=== PATIENT | female | born 1960 | race Caucasian/White ===

== ENCOUNTER → 2016-07-25 | Outpatient (CLI) | payer BC ==
--- NOTE | 2016-07-26 09:33 | REP ---
PET/CT: History: Initial staging pulmonary nodule. Ground-glass opacity right upper lobe. History of lymphoma. Comparisons: Comparison CT study [facility] June 29, 2016. TECHNIQUE: 62 minutes following the intravenous injection of a 7.8 mCi dose of F-18 FDG, three-dimensional PET scintigraphy is acquired from the skull base to the proximal thighs. Triplanar noncontrast CT scanning is acquired through the same anatomic range for attenuation correction, and image registration with scan parameters optimized to minimize radiation exposure to the patient. PET scintigraphy and CT datasets were fused and displayed on a workstation with multiplanar and projection display capability. PET/CT Findings: The head and neck soft tissues are unremarkable. There is no discernible FDG accumulation in the area of ground-glass opacity seen in the posterior segment of the right upper lobe on today's PET CT study. Sagittal reformation CT images suggest linear fibrosis morphology. The right middle lobe nodule is again seen on today's CT but there is no discernible FDG accumulation within it on scintigraphy. This is a small nodule. There is no abnormal hypermetabolic uptake within the chest. In the abdomen and pelvis, there is normal hepatic, splenic, gastrointestinal, and genitourinary FDG accumulation. No abnormal hypermetabolic uptake is seen within the chest or abdomen. No abnormal adrenal uptake is seen. Incidental findings include a small hiatal hernia and left colonic diverticulosis. Impression: No abnormal hypermetabolic uptake. No discernible uptake in either of the right lung pulmonary opacities. Follow-up chest CT recommended in 4-6 months. Signed by Dwaine Haas MD 07/26/2016 12:06 P
== END ==
LOC: M RAD 13:32
PROVIDERS: ATTEND Internal Medicine
DX: R91.1 Solitary pulmonary nodule (principal); Z85.72 Personal history of non-Hodgkin lymphomas; K44.9 Diaphragmatic hernia without obstruction or gangrene; K57.30 Diverticulosis of large intestine without perforation or abscess without bleeding
CPT/HCPCS: 78815; A9552

== ENCOUNTER → 2016-08-17 | Outpatient (REF) | payer BC | LOC: M LAB REF 12:06 | PROVIDERS: ATTEND Nurse Practitioner Family | DX: R50.9 Fever, unspecified (principal) ==

== ENCOUNTER → 2016-09-06 | Outpatient (REF) | payer BC ==
[2016-09-06 17:49] LABS: URIC ACID 6.9 MG/DL (2.6-6.0)
== END ==
LOC: M LAB REF 16:43
PROVIDERS: ATTEND Internal Medicine
DX: M25.50 Pain in unspecified joint (principal)

== ENCOUNTER → 2016-11-02 | Outpatient (REF) | payer BC | LOC: M LAB REF 16:26 | PROVIDERS: ATTEND Internal Medicine | DX: M10.062 Idiopathic gout, left knee (principal) ==

== ENCOUNTER → 2016-11-12 | Outpatient (REF) | payer BC ==
[2016-11-12 20:02] LABS: URIC ACID 6.8 MG/DL (2.6-6.0)
== END ==
LOC: M LAB REF 16:47
PROVIDERS: ATTEND Internal Medicine
DX: M10.062 Idiopathic gout, left knee (principal)

== ENCOUNTER → 2017-07-18 | Outpatient (CLI) | payer BC | LOC: M RAD 09:04 | DX: Z12.31 Encounter for screening mammogram for malignant neoplasm of breast (principal) | CPT/HCPCS: 77067 ==

== ENCOUNTER → 2017-08-20 | Outpatient (REF) | payer BC ==
[2017-08-20 13:31] LABS: INFLUENZA A AMPLIFICATION POSITIVE (NEGATIVE); INFLUENZA B AMPLIFICATION NEGATIVE (NEGATIVE)
== END ==
LOC: M LAB REF 12:24
DX: R05 Cough (principal)
CPT/HCPCS: 87502

== ENCOUNTER → 2018-09-23 | Outpatient (CLI) | payer BC ==
--- NOTE | 2018-09-23 09:58 | REPMRS ---
Patient History The patient states she has not had a clinical breast exam in over a year. Family history of breast cancer under age 50 in maternal grandmother, breast cancer under age 50 in maternal aunt, unknown cancer at age 63 in brother. Took hormonal contraceptives for 20 years. Took estrogen for 2 years. Took progesterone for 2 years. Digital Mammo Screening Bilat: September 23, 2018 - Exam #: [id number] Bilateral CC and MLO view(s) were taken. Technologist: Michaela Laguna, Technologist Prior study comparison: July 18, 2017, bilateral digital mammo screening bilat performed at [facility]. May 28, 2016, bilateral digital mammo screening bilat performed at [facility]. FINDINGS: The breast tissue is almost entirely fat. There has been no change in the appearance of the mammogram from the prior studies. There is no interval development of dominant mass, areas of architectural distortion, or clustered microcalcification typical of malignancy. Scattered lymph nodes are seen in the axillae. There are scattered, small, benign calcifications of doubtful clinical significance. 3-D tomosynthesis shows no additional findings. No significant changes when compared with prior studies. Assessment: BI-RADS/ACR category 2 mammogram. Benign Findings. Recommendation Routine screening mammogram in 1 year. A. Negative x-ray reports should not delay biopsy if a dominant or clinically suspicious mass is present. B. Four to eight percent of cancers are not identified by mammography. C. Adenosis and dense breast may obscure an underlying neoplasm.(for women over age 40). This mammogram was interpreted with the aid of an FDA-approved computer-aided dectection system. Electronically Signed By: Vicente Rodarte MD 09/23/18 [id number]
== END ==
LOC: M RAD 07:28
PROVIDERS: ATTEND Nurse Practitioner Family
DX: Z12.31 Encounter for screening mammogram for malignant neoplasm of breast (principal); Z80.3 Family history of malignant neoplasm of breast

== ENCOUNTER → 2018-12-12 | Outpatient (REF) | payer BC ==
[2018-12-12 19:14] LABS: PERCENT SATURATION 23.4 % (13.2-45.0)
== END ==
LOC: M LAB REF 17:05
PROVIDERS: ATTEND Internal Medicine
DX: D64.9 Anemia, unspecified (principal)

== ENCOUNTER → 2019-05-12 | Outpatient (REF) | payer BC ==
[2019-05-12 18:02] LABS: PERCENT SATURATION 21.8 % (13.2-45.0)
== END ==
LOC: M LAB REF 16:49
PROVIDERS: ATTEND Internal Medicine
DX: D64.9 Anemia, unspecified (principal)

== ENCOUNTER 2019-08-12 09:15 | Day surgery (SDC) | payer BC ==
[~2019-08-12] VITALS: Ht 160 cm; Wt 89.4 kg
[~2019-08-12 09:15] MED LIST: ASPI81TA26 PO; BREO1INH INH; CETI10CH PO; METF500T13 PO; NS 1,000 ML IV ONE; OLME40TA PO; PRIL20TA2 PO; VITA500T PO
[2019-08-12] MEDS ORDERED: LIDOCAINE 2% INJ 100 MG/5 ML SDV (FOR ANES.) As Ordered ONE (10:46)
[2019-08-12] MEDS ORDERED: propofoL 200 MG/20 ML VIAL As Ordered ONE (10:46)
--- NOTE | 2019-08-12 10:48 | ROOR ---
Patient Name: Radha Smith Procedure Date: 08/12/2019 10:27 AM Date of : 1960 Age: 59 Room: [facility] Gender: Female Note Status: Finalized Procedure: Upper Endoscopy + Biopsies Indications: Heartburn, Exclusion of Hauser's esophagus Providers: Roberto Blair MD Referring MD: Rdaha Wayne DO Requesting Provider: Medicines: Monitored Anesthesia Care Complications: No immediate complications. Procedure: Pre-Anesthesia Assessment: - The heart rate, respiratory rate, oxygen saturations, blood pressure, adequacy of pulmonary ventilation, and response to care were monitored throughout the procedure. The Endoscope was introduced through the mouth, and advanced to the second part of duodenum. The upper GI endoscopy was accomplished without difficulty. The patient tolerated the procedure well. Findings: The Z-line was variable and was found 35 cm from the incisors. Multiple biopsies were obtained with cold forceps for evaluation to rule out Hauser's Esophagus randomly at the gastroesophageal junction. A medium-sized hiatal hernia was present. No other significant abnormalities were identified in a careful examination of the stomach. The exam of the duodenum was otherwise normal. Impression: - Z-line variable, 35 cm from the incisors. - Medium-sized hiatal hernia. - Multiple biopsies were obtained at the gastroesophageal junction. - The examination was otherwise normal. Recommendation: - Patient has a contact number available for emergencies. The signs and symptoms of potential delayed complications were discussed with the patient. Return to normal activities tomorrow. Written discharge instructions were provided to the patient. - High fiber diet. - Discharge patient to home. - Follow an antireflux regimen. - Continue present medications. - Await pathology results. - Telephone GI clinic for pathology results in 1 week. - Return to referring physician. - The findings and recommendations were discussed with the patient's family. Roberto Blair MD Roberto Blair MD 08/12/2019 10:47:48 AM Electronically signed by Roberto Blair MD Number of Addenda: 0 Note Initiated On: 08/12/2019 10:27 AM Estimated Blood Loss: Estimated blood loss: none.
--- NOTE | 2019-08-12 11:05 | ROOR ---
Patient Name: Radha Smith Procedure Date: 08/12/2019 10:28 AM Date of : 1960 Age: 59 Room: [facility] Gender: Female Note Status: Finalized Procedure: Total Colonoscopy to Cecum Indications: Screening for colorectal malignant neoplasm Providers: Roberto Blair MD Referring MD: Radha Wayne DO Requesting Provider: Medicines: Monitored Anesthesia Care Complications: No immediate complications. Procedure: Pre-Anesthesia Assessment: - The heart rate, respiratory rate, oxygen saturations, blood pressure, adequacy of pulmonary ventilation, and response to care were monitored throughout the procedure. The Colonoscope was introduced through the anus and advanced to the cecum, identified by appendiceal orifice and ileocecal valve. The colonoscopy was performed without difficulty. The patient tolerated the procedure well. The quality of the bowel preparation was excellent. Findings: The perianal and digital rectal examinations were normal. Non-bleeding internal hemorrhoids were found during retroflexion. The hemorrhoids were small and Grade I (internal hemorrhoids that do not prolapse). Multiple small and large-mouthed diverticula were found in the recto-sigmoid colon, sigmoid colon and descending colon. The exam was otherwise without abnormality on direct and retroflexion views. Impression: - Non-bleeding internal hemorrhoids. - Diverticulosis in the recto-sigmoid colon, in the sigmoid colon and in the descending colon. - The examination was otherwise normal on direct and retroflexion views. - No specimens collected. - The exam was otherwise normal to the cecum. Recommendation: - Patient has a contact number available for emergencies. The signs and symptoms of potential delayed complications were discussed with the patient. Return to normal activities tomorrow. Written discharge instructions were provided to the patient. - High fiber diet. - Discharge patient to home. - Continue present medications. - Repeat colonoscopy in 10 years for screening purposes. - Return to referring physician. - The findings and recommendations were discussed with the patient's family. Roberto Blair MD Roberto Blair MD 08/12/2019 11:05:24 AM Electronically signed by Roberto Blair MD Number of Addenda: 0 Note Initiated On: 08/12/2019 10:28 AM Estimated Blood Loss: Estimated blood loss: none.
[2019-08-12 11:25] VITALS: BP 125/78
== END 2019-08-12 11:44 | disposition home or self-care (01) ==
LOC: M OPP 09:15
PROVIDERS: ATTEND Internal Medicine Gastroenterology
DX: Z12.11 Encounter for screening for malignant neoplasm of colon (principal); K64.0 First degree hemorrhoids; K57.30 Diverticulosis of large intestine without perforation or abscess without bleeding; K22.8 Other specified diseases of esophagus; K44.9 Diaphragmatic hernia without obstruction or gangrene; R12 Heartburn; K21.9 Gastro-esophageal reflux disease without esophagitis; Z79.82 Long term (current) use of aspirin; Z79.84 Long term (current) use of oral hypoglycemic drugs; Z79.899 Other long term (current) drug therapy; Z88.0 Allergy status to penicillin; Z88.8 Allergy status to other drugs, medicaments and biological substances; Z87.891 Personal history of nicotine dependence

== ENCOUNTER → 2020-03-19 | Outpatient (REF) | payer BC ==
[~2020-03-19] MED LIST changes: -NS 1,000 ML IV ONE; +VITA-243 PO; -VITA500T PO
== END ==
LOC: M WUC 17:22
PROVIDERS: ATTEND Nurse Practitioner Family
DX: N39.0 Urinary tract infection, site not specified (principal)

== ENCOUNTER → 2020-03-28 | Outpatient (CLI) | payer BC ==
--- NOTE | 2020-03-28 17:38 | REPMRS ---
Patient History The patient states she has not had a clinical breast exam in over a year. Family history of breast cancer under age 50 in maternal grandmother, breast cancer under age 50 in maternal aunt, unknown cancer at age 63 in brother. Took hormonal contraceptives for 20 years. Took estrogen for 2 years. Took progesterone for 2 years. Digital Woman Screen Mammo: March 28, 2020 - Exam #: [id number] Bilateral CC and MLO view(s) were taken. Technologist: Melody Yadav, Technologist Prior study comparison: September 23, 2018, bilateral digital mammo screening bilat, performed at [facility]. July 18, 2017, bilateral digital mammo screening bilat, performed at [facility]. May 28, 2016, bilateral digital mammo screening bilat, performed at [facility]. FINDINGS: The breast tissue is almost entirely fat. The Volpara volumetric breast density category is: A. There has been no change in the appearance of the mammogram from the prior studies. There is no interval development of dominant mass, architectural distortion, or grouped microcalcification typical of malignancy. 3-D tomosynthesis shows no additional findings. Assessment: BI-RADS/ACR category 1 mammogram. Negative Mammogram. Recommendation Routine screening mammogram of both breasts in 1 year (for women over age 40). This patient's Lifetime Breast Cancer RIsk is estimated at 9.5 %. This mammogram was interpreted with the aid of an FDA-approved computer-aided dectection system. Electronically Signed By: Zafar Haas MD 03/28/20 [id number]
== END ==
LOC: M WHC 12:50
PROVIDERS: ATTEND Internal Medicine
DX: Z12.31 Encounter for screening mammogram for malignant neoplasm of breast (principal); Z80.8 Family history of malignant neoplasm of other organs or systems; Z80.3 Family history of malignant neoplasm of breast; Z92.0 Personal history of contraception; Z92.23 Personal history of estrogen therapy; Z92.29 Personal history of other drug therapy

== ENCOUNTER → 2020-05-27 | Outpatient (CLI) | payer BC ==
[~2020-05-27] MED LIST changes: +GASTROGRAFIN SOLUTION 30ML (Q9963) As Ordered ONE; +ISOVUE-370 76% 100ML VIAL As Ordered ONE
--- NOTE | 2020-05-27 19:12 | REP ---
INDICATION: PELVIC AND PERINEAL PAIN. COMPARISON: None TECHNIQUE: 100 cc Isovue 370 FINDINGS: The precontrast enhanced portion examination shows a patent splenic densities to be within normal limits. There are no cholelithiasis. There is a 5 mm sized nonobstructing nephrolith in the inferior pole of the right kidney. There are no proximal ureterolith. The contrast-enhanced portion examination shows the liver, gallbladder, spleen, pancreas, adrenal glands, and right kidney to be unremarkable. Seen in the interpolar region of the left kidney there is a round 2.3 cm sized smoothly marginated focal area of low density which has water density Hounsfield unit readings without septations or enhancement consistent with a simple cyst. There is a smaller structure of similar characteristics seen in the inferior pole of the left kidney. The abdominal aorta and para-regions are within normal limits. There is no free fluid or free air. There is descending colon and sigmoid colon diverticulosis. There is no mass or adenopathy. There is no free fluid or free air. There is a small hiatal hernia. Bone window technique throughout the examination shows the osseous structures to be within normal limits for the patient's age. The lung bases are clear. IMPRESSION: 1. Simple Bosniak class 1 left renal cysts as described above. 2. Colonic diverticulosis without diverticulitis. 3. 5 mm sized nonobstructing right nephrolith. 4. Other findings as described above. <Electronically signed by Geremias Mccord > 05/27/20 [id number]
== END ==
LOC: M RAD 16:19
PROVIDERS: ATTEND Internal Medicine
DX: R10.2 Pelvic and perineal pain (principal); N20.0 Calculus of kidney; K57.30 Diverticulosis of large intestine without perforation or abscess without bleeding; K44.9 Diaphragmatic hernia without obstruction or gangrene; N28.1 Cyst of kidney, acquired
CPT/HCPCS: 74178; Q9963; Q9967

== ENCOUNTER → 2021-08-17 | Outpatient (CLI) | payer BC ==
[~2021-08-17] MED LIST changes: -GASTROGRAFIN SOLUTION 30ML (Q9963) As Ordered ONE; -ISOVUE-370 76% 100ML VIAL As Ordered ONE
== END ==
LOC: M RAD 10:35
PROVIDERS: ATTEND Internal Medicine
DX: E04.2 Nontoxic multinodular goiter (principal)

== ENCOUNTER → 2021-08-20 | Outpatient (REF) | payer BC | LOC: M LAB REF 17:25 | PROVIDERS: ATTEND Physician Assistant | DX: R30.0 Dysuria (principal) ==

== ENCOUNTER → 2021-08-20 | Outpatient (CLI) | payer BC ==
[2021-08-20 12:25] LABS: BASO % 0.3 % (0.0-1.0); EOS % 0.3 % (0.0-3.0); HEMATOCRIT 33.8 % (36.0-47.0); HEMOGLOBIN 11.3 g/dl (12.0-15.5); LYMPH % 8.1 % (24.0-44.0); MEAN CORPUSCULAR HEMOGLOBIN 29.7 pg (27.0-33.0); MEAN CORPUSCULAR HGB CONC 33.4 g/dl (32.0-36.5); MEAN CORPUSCULAR VOLUME 88.7 fl (80.0-96.0); MONO # 0.8 10^3/uL (0.0-0.8); NEUTROPHILS # 9.9 10^3/uL (1.5-8.5); NEUTROPHILS % 83.8 % (36.0-66.0); PLATELET COUNT, AUTOMATED 165 10^3/uL (150-450); RED BLOOD COUNT 3.81 10^6/uL (4.00-5.40)
[2021-08-20 12:42] LABS: ALBUMIN 3.6 GM/DL (3.2-5.2); BILIRUBIN,TOTAL 0.5 MG/DL (0.2-1.0); CALCIUM LEVEL 8.6 MG/DL (8.5-10.1); CREATININE FOR GFR 1.38 MG/DL (0.55-1.30); GLOMERULAR FILTRATION RATE 41.7 (>51); POTASSIUM SERUM 4.7 MEQ/L (3.5-5.1); TOTAL PROTEIN 7.4 GM/DL (6.4-8.2)
[2021-08-21 06:33] LABS: WHITE BLOOD COUNT 11.8 10^3/uL (4.0-10.0)
== END ==
LOC: M LAB 11:51
PROVIDERS: ATTEND Physician Assistant
DX: R30.0 Dysuria (principal)

== ENCOUNTER → 2021-08-29 | Outpatient (REF) | payer BC | LOC: M WUC 15:44 | PROVIDERS: ATTEND Physician Assistant | DX: R30.0 Dysuria (principal) ==

== ENCOUNTER → 2022-09-13 | Outpatient (REF) | payer BC ==
[2022-09-13 16:41] LABS: FERRITIN 71.4 NG/ML (7.3-270.7); PERCENT SATURATION 21.8 % (13.2-45.0)
== END ==
LOC: M LAB REF 16:07
PROVIDERS: ATTEND Internal Medicine
DX: D64.9 Anemia, unspecified (principal)

== ENCOUNTER → 2022-09-27 | Outpatient (CLI) | payer BC | LOC: M WHC 13:54 | PROVIDERS: ATTEND Internal Medicine | DX: Z12.31 Encounter for screening mammogram for malignant neoplasm of breast (principal) ==

== ENCOUNTER → 2022-10-29 | Outpatient (REF) | payer BC | LOC: M LAB REF 18:20 | PROVIDERS: ATTEND Student in an Organized Health Care Education/Training Program | DX: R30.0 Dysuria (principal) ==

== ENCOUNTER → 2022-11-05 | Outpatient (REF) | payer BC ==
[~2022-11-05] MED LIST changes: +ALL10TAB PO; +FLON1SPR; +LEVA45AE INH; +MULT-90 PO
== END ==
LOC: M LAB REF 16:31
PROVIDERS: ATTEND Nurse Practitioner Family
DX: R30.0 Dysuria (principal); N39.0 Urinary tract infection, site not specified

== ENCOUNTER 2022-11-19 10:30 | Day surgery (SDC) | payer BC ==
[~2022-11-19] VITALS: Ht 160 cm; Wt 97.0 kg
[~2022-11-19 10:30] MED LIST changes: +NS 1,000 ML IV ONE
[2022-11-19] MEDS ORDERED: LIDOCAINE 2% 100MG/5ML SDV (FOR ANES.) As Ordered ONE (11:23)
[2022-11-19] MEDS ORDERED: propofoL 200 MG/20 ML VIAL As Ordered ONE (11:23)
[2022-11-19] MEDS ORDERED: fentaNYL 100 MCG/2 ML INJECTION As Ordered ONE (11:31)
[2022-11-19 12:10] VITALS: BP 124/59
== END 2022-11-19 12:20 | disposition home or self-care (01) ==
LOC: M OPP 10:30
PROVIDERS: ATTEND Internal Medicine Gastroenterology
DX: K31.A19 Gastric intestinal metaplasia without dysplasia, unspecified site (principal); K22.89 Other specified disease of esophagus; K31.7 Polyp of stomach and duodenum; Z87.891 Personal history of nicotine dependence; Z79.82 Long term (current) use of aspirin; Z79.84 Long term (current) use of oral hypoglycemic drugs; Z79.899 Other long term (current) drug therapy; Z88.0 Allergy status to penicillin; Z88.1 Allergy status to other antibiotic agents; Z88.8 Allergy status to other drugs, medicaments and biological substances
CPT/HCPCS: 43239; 88305; J3010

== ENCOUNTER → 2023-03-19 | Outpatient (REF) | payer BC ==
[~2023-03-19] MED LIST changes: -NS 1,000 ML IV ONE
[2023-03-19 18:16] LABS: APPEARANCE, URINE CLOUDY (CLEAR); BACTERIA, URINE AUTO 2+ (NEGATIVE); BILIRUBIN, URINE AUTO NEGATIVE (NEGATIVE); BLOOD, URINE BLOOD NEGATIVE (NEGATIVE); COLOR, URINE YELLOW (YELLOW); GLUCOSE, URINE (UA) AUTO NEGATIVE (NEGATIVE); KETONE, URINE AUTO NEGATIVE (NEGATIVE); LEUKOCYTE ESTERASE, URINE AUTO 3+ (NEGATIVE); NITRITE, URINE AUTO POSITIVE (NEGATIVE); PROTEIN, URINE AUTO 1+ mg/dL (NEGATIVE); RBC, URINE AUTO 0 /HPF (0-3); SPECIFIC GRAVITY URINE AUTO 1.017 (1.002-1.035); SQUAMOUS EPITHELIAL CELL UR AU 5 /HPF (0-6); UROBILINOGEN, URINE AUTO 0.2 mg/dL (0.0-2.0); WBC, URINE AUTO TNTC /HPF (0-3)
== END ==
LOC: M LAB REF 16:42
PROVIDERS: ATTEND Internal Medicine
DX: N39.0 Urinary tract infection, site not specified (principal)

== ENCOUNTER → 2023-04-16 | Outpatient (CLI) | payer BC ==
[~2023-04-16] MED LIST changes: +ISOVUE-370 76% 100ML VIAL ONE
== END ==
LOC: M PLAIMG 09:40
PROVIDERS: ATTEND Internal Medicine
DX: J43.2 Centrilobular emphysema (principal); N28.1 Cyst of kidney, acquired; K76.0 Fatty (change of) liver, not elsewhere classified
CPT/HCPCS: 71260; Q9967

== ENCOUNTER → 2024-09-28 | Outpatient (CLI) | payer BC ==
[~2024-09-28] MED LIST changes: -ISOVUE-370 76% 100ML VIAL ONE
[2024-09-29 13:21] LABS: PERCENT SATURATION 20.3 % (13.2-45.0)
[2024-09-29 13:24] LABS: FERRITIN 51.9 NG/ML (7.3-270.7)
== END ==
LOC: M WUC 15:20
PROVIDERS: ATTEND Internal Medicine
DX: D64.9 Anemia, unspecified (principal); M25.552 Pain in left hip; M25.562 Pain in left knee; M79.89 Other specified soft tissue disorders; M17.12 Unilateral primary osteoarthritis, left knee

== ENCOUNTER → 2025-04-29 | Outpatient (CLI) | payer BC | LOC: M WHC 16:40 | PROVIDERS: ATTEND Internal Medicine | DX: Z12.31 Encounter for screening mammogram for malignant neoplasm of breast (principal) ==

== ENCOUNTER → 2025-05-17 | Outpatient (REF) | payer BC ==
[2025-05-18 15:03] LABS: IRON (FE) 69.0 UG/DL (50-170); PERCENT SATURATION 23.5 % (13.2-45.0)
== END ==
LOC: M LAB REF 14:25
PROVIDERS: ATTEND Internal Medicine
DX: D64.9 Anemia, unspecified (principal)

== ENCOUNTER → 2025-06-01 | Outpatient (CLI) | payer BC | LOC: M PLAIMG 13:12 | PROVIDERS: ATTEND Internal Medicine | DX: J44.9 Chronic obstructive pulmonary disease, unspecified (principal) ==

== ENCOUNTER → 2025-06-17 | Outpatient (CLI) | payer BC | LOC: M RAD 15:06 | PROVIDERS: ATTEND Internal Medicine | DX: N28.1 Cyst of kidney, acquired (principal) ==